=== PATIENT | male | born 1990 | race African-American/Black ===

== ENCOUNTER 2019-11-01 09:09 | Emergency (ER) | payer BC ==
[~2019-11-01] VITALS: Ht 185.4 cm; Wt 79.4 kg
[~2019-11-01 09:09] MED LIST: KEFLEX500 M1 PO
[2019-11-01] MEDS ORDERED: METHOCARBAMOL500 M2 PO (09:57)
[2019-11-01] MEDS ORDERED: NAPROSYN500 MG PO (09:57)
[2019-11-01 10:42] VITALS: BP 140/88
== END 2019-11-01 10:38 | disposition home or self-care (01) ==
LOC: ER 09:09
DX: M54.5 Low back pain (principal); Z98.890 Other specified postprocedural states